=== PATIENT | male | born 1950 | race African-American/Black ===

== ENCOUNTER 2017-03-19 15:05 | Inpatient (IN) | payer BC, OTHER ==
[~2017-03-19] VITALS: Ht 177.8 cm; Wt 108.9 kg
--- NOTE | ~2017-03-19 | S ---
[facility] [place] [address] SURGICAL PATH RPT PROCEDURE Name: LINDSEY GOFF Room #: 217-P ADM IN M.R.#: [id number] Admission: 03/19/17 Date of : 54 Discharge: Report #: [id number] Path Case #: [id number] PATHOLOGY REPORT COLLECTION DATE: 03/21/2017 RECEIVED DATE: 03/21/2017 SUBMITTING PHYS: Dr. Mirza Dickey OTHER PHYS: Dr. Raj Warren SPECIMEN(S) RECEIVED: A.Right foot necrotic tissue * * * * * * * * * * * * FINAL DIAGNOSIS: Right foot necrotic tissue, debridement: - Marked acute inflammation, ulceration as well as gangrenous necrosis, consistent with debridement tissue. (IUV:sade; 03/23/2017) PATHOLOGIST: Natalia Guadarrama M.D. REPORT ELECTRONICALLY SIGNED BY: Natalia Guadarrama M.D. DATE/TIME: 03/23/2017 15:11 * * * * * * * * * * * * GROSS PATHOLOGY: The specimen is received in formalin, labeled "Lindsey Goff, right foot necrotic tissue" and consists of an ovoid, desiccated, necrotic portion of skin and soft tissue with associated blood clot measuring 12.6 x 7.5 x 2.5 cm. No one is identified A small rim of thickened, desquamated skin is noted along the edge measuring up to 0.2 cm in thickness. The cut surface has a dusky, purple-red, and thickened to softened appearance. Focal necrotic areas are also identified. No additional abnormalities are noted. Respiratory Therapy Manager sections are submitted in cassette A1. (JWP; 03/22/2017) CLINICAL HISTORY: Right foot osteomyelitis INITIAL CPT CODE(S): A; 54709 Professional services performed by [facility] at [facility] [address], [place] [address] Technical services performed by [facility] at [address] [place] [id number] SURGICAL PATH RPT PROCEDURE Name: LINDSEY GOFF [place] Room #: 217-P ADM IN .R.#: [id number] Admission: 03/19/17 Date of : 54 Discharge: Report #: [id number] Path Case #: [id number] [place] [address]. [facility] [address] [place] [address] PHONE: [phone] DIRECTOR: Froilan Domingo M.D. * * * END OF REPORT * * *
--- NOTE | ~2017-03-19 | O ---
[facility] [place] [address] OPERATIVE REPORT Name: LINDSEY WILLSON Room #: 217-P ADM IN M.R.#: [id number] Admission: 03/19/17 Attend Phys: Raj Warren DO Discharge: Date of : 54 Report #: [id number] THIS REPORT FOR: //name// CC: FAM unknown Raj Warren PREOPERATIVE DIAGNOSIS: Right foot gangrene with acute infection, heel and plantar foot. POSTOPERATIVE DIAGNOSIS: Right foot gangrene with acute infection, heel and plantar foot. PROCEDURE: Right foot extensive debridement and irrigation. SURGEON: Mirza Dickey M.D. ANESTHESIA: General. INDICATIONS: The patient is a 66-year-old gentleman who is in very poor general health, who has a chronic right foot ulcer. He apparently was evaluated at [facility] and had a vascular procedure to increase the inflow to his foot and was scheduled to have a debridement of his foot. He presented, however, acutely ill to [facility] and was admitted and we have been consulted regarding his foot wound. My PA and I evaluated his foot and his overall situation and I spent at least 30 minutes discussing at length with the patient the dire nature of his foot infection. I recommended a below-knee amputation for him as I think this would give him the best chance at healing, potentially ambulating and clearing the infection. He, unfortunately, has adamantly opposed to having a foot and below-knee amputation. For this region, I recommended that at least we do a debridement involving the devitalized and infected tissue to at least diminish his infection more to hopefully help his overall health. He consented to this procedure. DESCRIPTION OF PROCEDURE: After adequate general anesthesia had been obtained, the patient's right lower extremity was prepped and draped. He had a very large eschar on the plantar aspect of his foot, which was sharply resected. All devitalized tissue was removed sharply and with a rongeur. He did have an exposed os calcis and the unhealthy portion of the os calcis, i.e., the soft infected-appearing bone was also removed with rongeur. I then irrigated the foot with 3 liters of pulse lavage irrigation followed by a liter of antibiotic irrigation. No tourniquet was utilized. He did have bleeding in the subcutaneous tissues, which was the only positivity to come out on this surgery. [address] [address] OPERATIVE REPORT Name: LINDSEY WILLSON [place] Room #: 217-P [facility] IN M.R.#: [id number] Admission: 03/19/17 Attend Phys: Raj Warren DO Discharge: Date of : 54 Report #: [id number] We then placed a dilute Betadine-soaked Kerlix packing over the wound and then wrapped it sterilely with a compressive wrap. <ELECTRONICALLY SIGNED> By: Mirza Dickey MD 03/22/17 2149 1205 1359 Mirza Dickey MD /onelia
--- NOTE | ~2017-03-19 | HC ---
[facility] [place] [address] CONSULTATION Name: LINDSEY WILLSON Room #: 217-P [facility] IN M.R.#: [id number] Admission: 03/19/17 Attend Phys: Raj Warren DO Discharge: Date of : 54 Report #: [id number] THIS REPORT FOR: //name// CC: FAM unknown Raj Warren DATE OF SERVICE: 03/19/2017 INDICATION: Chest pain. HISTORY OF PRESENT ILLNESS: This is a 66-year-old gentleman who presents with complaints of chest pains, diarrhea and weakness. The patient is a poor historian. The details are obtained from his medical records. He does report having pain across the chest area, not related to exertion. It seems to come and go, partially reproducible with palpation over the chest area. The patient has a prior history of CABG, followed at [facility] with Dr. Castellon. Recently, he has been having issues with osteomyelitis of his right foot and has been attending wound clinic on a weekly basis. He has chronic renal disease, but not on dialysis. ALLERGIES: ASPIRIN, NIACIN, PIPERACILLIN and SULFA. MEDICAL HISTORY: 1. CABG times 5 in 2010. 2. History of mild cardiomyopathy with EF of 40% in 04/2016. Nuclear stress test from 04/2016 at [facility] revealed a large inferior wall infarct. 3. History of peripheral vascular disease with a left BKA. History of hypertension and chronic kidney disease. Also, with a history of noncompliance. Prior history of osteomyelitis. 4. History of diabetes mellitus. MEDICATIONS: Include torsemide 20 mg 3 times a day, insulin, Lipitor 40 mg daily, Imdur 30 mg, Zestril, and Coreg. SOCIAL HISTORY: Negative for tobacco use. FAMILY HISTORY: Negative for premature CAD. REVIEW OF SYSTEMS: A full 10-point review of systems performed. Only the pertinent positives and negatives are described in the HPI. PHYSICAL EXAMINATION: VITAL SIGNS: Blood pressure is 110/60, heart rate is 110 beats per minute. GENERAL APPEARANCE: An overweight male in no acute respiratory distress. HEAD AND EYES: Normocephalic. Sclerae are anicteric. [facility] [address] [place] [address] CONSULTATION Name: LINDSEY WILLSON [place] Room #: 217-P [facility] IN .R.#: [id number] Admission: 03/19/17 Attend Phys: Raj Warren DO Discharge: Date of : 54 Report #: [id number] ENT: Oral mucosa moist. NECK: Supple. LUNGS: Diminished breath sounds at the bases. CARDIAC: Distant heart sounds, S1, S2 positive. ABDOMEN: Soft, nontender. EXTREMITIES: Left BKA. Right lower extremity positive edema and erythema. Negative for cyanosis. ECG reveals probable sinus tachycardia with frequent APCs, right bundle branch block, PVCs, nonspecific ST segment abnormalities. LABORATORY VALUES: White count is 22.2, hemoglobin is 8.9. Sodium is 134, creatinine 6.1. Troponin is 0.21. X-ray of the right foot is suggestive for osteomyelitis. ASSESSMENT AND PLAN: 1. Chest pain syndrome, by history, appears to be noncardiac. The troponin abnormality is in the indeterminate range. It may be a false positive elevation due to his underlying renal disease. The plan is to continue with medical therapy for now. Continue with long-acting nitrates, and resume of low dose of beta belle. He has allergy to ASPIRIN, but apparently was given Plavix in the ER. 2. Sepsis, rule out osteomyelitis, elevated white count. Mccormick-culture and start antibiotics. 3. Cardiomyopathy in the moderate range, stable at this time. 4. Chronic kidney disease, follow creatinine and await nephrology evaluation. 5. Hypertension. The blood pressure is stable at this time. 6. Diabetes mellitus, continue with insulin regimen and fingersticks. Thank you for allowing me to participate in the care of your patient. <ELECTRONICALLY SIGNED> By: Shoaib Perry MD 03/21/17 0821 27 0228 Shoaib Perry MD /nt
--- NOTE | ~2017-03-19 | HC ---
[facility] [place] [address] CONSULTATION Name: LINDSEY WILLSON [place] Room #: 217-P ADM IN M.R.#: [id number] Admission: 03/19/17 Attend Phys: Raj Warren DO Discharge: Date of : 54 Report #: [id number] THIS REPORT FOR: //name// CC: FAM unknown Raj Warren INFECTIOUS DISEASE CONSULTATION REASON FOR CONSULTATION: I was asked to evaluate concerning right lower extremity infection. HISTORY OF PRESENT ILLNESS: The patient is a 66-year-old with diabetes, hypertension, coronary artery disease, peripheral vascular disease, chronic renal failure. He has had a previous amputation of his left lower extremity several years ago. Now presents with increasing chest pain associated with generalized weakness, diarrhea and persistent wound to his right foot. He was diagnosed with osteomyelitis at [facility]. By his report, he was undergoing anesthesia for further debridement and he coded. Unclear if any debridement was performed. States he was dismissed and has been following in the outpatient wound care clinic. Today on presentation to the Emergency Room, he has been complaining of chest discomfort. He has just been evaluated by Cardiovascular Medicine. I did discuss the case with him. He has been undergoing hemodialysis as an outpatient. Details of this are not available. ALLERGIES: ASPIRIN, NIACIN, ZOSYN, SULFA, WATERMELON. MEDICATIONS: As noted on his MAR. He was given vancomycin and ceftriaxone in the Emergency Room. PAST MEDICAL AND SURGICAL HISTORY: Coronary artery bypass grafting, congestive heart failure, hypertension, diabetes, end-stage renal disease, left BKA, peripheral vascular disease, peripheral neuropathy, bilateral carpal tunnel syndrome, knee surgery, left rotator cuff surgery, left lower extremity vascular stents, elbow repair. FAMILY HISTORY: Coronary artery disease, diabetes, renal disease. SOCIAL HISTORY: He is a nonsmoker, no significant alcohol intake. REVIEW OF SYSTEMS: Complaining of shortness of breath, chest discomfort. Has had difficulty urinating, has had loose stools, no vomiting, no abdominal pain. PHYSICAL EXAMINATION: VITAL SIGNS: His last dialysis was approximately 2 weeks ago and he was taken off dialysis. He has been on and off for the last several years. Creatinine today was 6. GENERAL: Afebrile and hemodynamically stable. He was short of breath, moving [facility] [address] [place] [address] CONSULTATION Name: LINDSEY WILLSON [place] Room #: 217-P [facility] IN M.R.#: [id number] Admission: 03/19/17 Attend Phys: Raj Warren DO Discharge: Date of : 54 Report #: [id number] in bed. HEENT: Unremarkable. LUNGS: Clear. HEART: Regular, without murmur. ABDOMEN: Soft, nontender, no hepatosplenomegaly or mass appreciated. GENITOURINARY: External genitalia unremarkable. EXTREMITIES: Left BKA had a small wound to the distal aspect. The right lower extremity had 2+ edema throughout, decreased pulses in the groin +2, cannot palpate any pulses in his foot. He had diffuse erythema in the lower leg below the knee, had eschar from the hind foot to the mid foot region. This was more consistent with dry gangrene. Minimal surrounding erythema. Decreased sensation. LABORATORY STUDIES: BNP 38,794. Hemoglobin 8.9; platelet count 292,000; white count 22,000 with 2% bands; 88% neutrophils. CRP was 289, lactate 2.2. X-ray of the foot, soft tissue ____ with subcutaneous gas, bony destruction and cortical destruction of the calcaneus consistent with osteomyelitis. Sodium 134, potassium 3.7, bicarb of 18, creatinine 6.1. Electrocardiogram, PVCs, right bundle-branch block. IMPRESSION: A 66-year-old diabetic with peripheral vascular disease with osteomyelitis of his right lower extremity involving the calcaneus. He has coronary disease, peripheral vascular disease and peripheral neuropathy. I suspect now end-stage renal disease. I would recommend Vascular Surgery evaluation. We performed arterial studies prior to what I suspect will be the need for below-knee amputation. I have discussed with Cardiovascular Medicine. Right now, unclear of the workup. Cardiovascular Medicine was feeling this is most likely noncardiogenic chest pain. We will also need Nephrology assistance. It appears at this time the patient will require hemodialysis, but will need their input. <ELECTRONICALLY SIGNED> By: Ron Ochoa MD 03/24/17 1528 [id number] Ron Ochoa MD /nt
--- NOTE | ~2017-03-19 | HC ---
[facility] [place] [address] CONSULTATION Name: LINDSEY WILLSON Room #: 217-P [facility] IN M.R.#: [id number] Admission: 03/19/17 Attend Phys: Raj Warren DO Discharge: Date of : 54 Report #: [id number] THIS REPORT FOR: //name// CC: FAM unknown Raj Warren DATE OF SERVICE: 03/20/2017 REASON FOR PRESENTATION: Chest pain and diarrhea. REASON FOR CONSULTATION: Advanced chronic kidney disease. HISTORY OF PRESENT ILLNESS: This is a 66-year-old with extensive past medical history including diabetes mellitus, hypertension, ongoing issues with peripheral vascular disease, status post left BKA, cellulitis and possible osteomyelitis of the right foot for which he received some medical care at [facility]. He is also known to have advanced chronic kidney disease. He had been seen on numerous occasions in 2016 by my partners, Dr. Franco and Dr. Nassar. He was deemed to be end-stage renal disease due to hypertension. He used to see a computer analyst at [facility]. He was supposed to see Dr. Franco in the clinic; however, due to his snf, he is supposed to see his nurse practitioner. He told me that he in the past required some dialysis, but the history is not really clear about that. When he presented yesterday, he was found to have an elevated creatinine and I was asked to manage his chronic kidney disease. PAST MEDICAL HISTORY: 1. Hypertension. 2. Diabetes mellitus. 3. Peripheral vascular disease, status post left BKA. 4. Cellulitis and osteo of the right side per him. 5. Cardiomyopathy with an ejection fraction of 40%. 6. Advanced chronic kidney disease, stage 5 due to diabetes mellitus. 7. Nephrotic-range proteinuria. 8. Status post left BKA. 9. Hyperlipidemia. PAST SURGICAL HISTORY: 1. CABG. 2. Left BKA. 3. Left rotator cuff. ALLERGIES: ASPIRIN, NIACIN, ZOSYN. FAMILY HISTORY: Significantly strong family history of diabetes mellitus. [facility] [address] [place] [address] CONSULTATION Name: WILLSONLINDSEY [place] Room #: [address] [place] [address] IN M.R.#: [id number] Admission: 03/19/17 Attend Phys: Raj Warren DO Discharge: Date of : 54 Report #: [id number] REVIEW OF SYSTEMS: GENERAL: No fever or chills. CARDIOVASCULAR: Significant for chest pain. PULMONARY: Significant for shortness of breath. GASTROINTESTINAL: No nausea or vomiting. GENITOURINARY: No frequency, no urgency. MUSCULOSKELETAL: As per the history of present illness. PATIENT MEDICATIONS: 1. Gabapentin. 2. Torsemide. 3. Insulin. PHYSICAL EXAMINATION: GENERAL: He is alert, oriented. VITAL SIGNS: Blood pressure is 95/56. HEAD AND NECK: No jugular venous distention. CHEST: No crackles. CARDIOVASCULAR: No rub. ABDOMEN: Soft, nontender. LOWER EXTREMITIES: Status post left BKA with extensive edema on the right side. There is an erythema of the right leg below the knee. There is also eschar on the hindfoot, this seems to be old dry gangrene. LABORATORY VALUES: White blood cell count is elevated at 21. Chemistry from today revealed a sodium of 134, BUN of 67 and a creatinine of 5.9. ASSESSMENT, IMPRESSION AND PLAN: 1. End-stage renal disease. 2. Noncompliance. 3. Leukocytosis. 4. Possible osteomyelitis of the right foot. 5. Diabetes mellitus, uncontrolled. 6. The patient is really not clear about any of his medical issues. He really lacks insight of his medical care. He is not aware of his medications. I will review his clinic records. From the renal perspective, he seems to be approaching dialysis. He will need to be prepared for that. At this point, we will try to optimize his blood pressure, his blood sugar. He needs his cellulitis to be treated. 7. I will resume his outpatient clinic medications. 8. Based on his progress over the next few days, I will decide about initiating dialysis in him or not. <ELECTRONICALLY SIGNED> By: Libby Martinez MD 03/21/17 2146 0754 00 Libby Martinez MD /nt
--- NOTE | ~2017-03-19 | EKG ---
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
--- NOTE | ~2017-03-19 | EKG ---
[address] [place] [address] ELECTROCARDIOGRAM REPORT Name: WILLSONLEXII [place] Room #: 217-P ADM IN M.R.#: [id number] Admission: 03/19/17 Attend Phys: Raj Warren DO Discharge: Date of : 54 Report #: [id number] THIS REPORT FOR: //name// 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 : 1950 Requested By: Syed Tyler Order Number: [id number] MD: Flaco Owen Measurements Intervals [place] Rate: 111 P: -48 KS: 154 QRS: -156 QRSD: 161 T: 51 QT: 387 QTc: 526 Interpretive Statements Sinus tachycardia Ventricular premature complex RBBB and LPFB Compared to ECG 05/03/2016 13:23:31 Ventricular premature complex(es) now present Electronically Signed On 03-21-2017 8:14:36 CDT by Flaco Owen [email or web address] <ELECTRONICALLY SIGNED> By: Flaco Owen MD, [facility] 03/21/17 0814 1523 1523 Flaco Owen MD, [facility] /EPI
--- NOTE | ~2017-03-19 | HC ---
[facility] [place] [address] CONSULTATION Name: LINDSEY WILLSON [place] Room #: 217-P [facility] IN M.R.#: [id number] Admission: 03/19/17 Attend Phys: Raj Warren DO Discharge: Date of : 54 Report #: [id number] THIS REPORT FOR: //name// CC: FAM unknown Raj Warren DATE OF SERVICE: 03/22/2017 CHIEF COMPLAINT: Surgical wound following debridement of the right heel region. HISTORY OF PRESENT ILLNESS: This is a 66-year-old male patient, admitted earlier. He has a previous left BKA and had come to the Emergency Department with complains of chest pain and diarrhea, was noted to have necrosis and drainage from the plantar aspect of the right foot. He underwent aggressive surgical debridement of the plantar aspect of the right foot and I was asked to see him with regard to ongoing wound care. He denies significant pain at this time. PAST MEDICAL HISTORY: Positive for previous left below knee amputation, history of diabetes mellitus with peripheral neuropathy, coronary artery disease, and peripheral vascular disease. He has been followed by Dr. Nicolas, vascular surgeon previously. FAMILY HISTORY: Noncontributory. REVIEW OF SYSTEMS: CONSTITUTIONAL: Denies fever, chills, or weight loss. NEUROLOGICAL: The patient denies focal weakness. Does complain of neuropathy to both lower extremities. ENT: The patient denies earache, nasal drainage, or sore throat. CARDIOVASCULAR: The patient denies chest pain, palpitations, or diaphoresis. PULMONARY: The patient denies cough or shortness of breath. GASTROINTESTINAL: The patient denies nausea or abdominal pain. ORTHOPEDIC: The patient is aware of the ulceration and they surgically debrided the area of his right foot. He is concerned that he preserved the presence of his right leg and has declined previous below knee amputation recommendations. Other systems are negative. PHYSICAL EXAMINATION: VITAL SIGNS: At this time, temperature 97.6, pulse 85, respiration of 20, and blood pressure 132/59. GENERAL: This is a chronically ill-appearing male patient, who appears to be in no distress. HEENT: Normocephalic. Nose and throat clear. NECK: Supple. LUNGS: Clear. [facility] [address] [place] [address] CONSULTATION Name: LINDSEY WILLSON [place] Room #: 217-P ADM IN M.R.#: [id number] Admission: 03/19/17 Attend Phys: Raj Warren DO Discharge: Date of : 54 Report #: [id number] ABDOMEN: Soft. Bowel sounds present. EXTREMITIES: Distal lower extremities demonstrate diminished palpable distal pulse on the right foot. He has previously well-healed left below knee amputation. He has a large defect on the plantar aspect of the right foot involving the posterior half of the foot. There is exposed calcaneus and plantar fascia. There is a small ring of granulation tissue, most of the yellow tissue exposed as fibrous. It is not overtly infected. CLINICAL IMPRESSION: 1. Diabetic foot ulceration to the right foot, now status post surgical debridement of necrotic and infected tissue. 2. Peripheral vascular disease. 3. Diabetes mellitus with peripheral neuropathy. RECOMMENDATIONS: At this point in time, we will recommend topical antibiotic ointment, Xeroform gauze in order to prevent desiccation of the bone and other tissue. I am reluctant to believe that this area is going to fill in or heal well and he would likely be most benefited with below knee amputation, which he is not willing to consider at this point in time. I appreciate being asked to see him in consultation. <ELECTRONICALLY SIGNED> By: Osmin Rodrigues MD 03/24/17 1002 [id number] 2318 Osmin Rodrigues MD /nt
--- NOTE | ~2017-03-19 | 2DMMODE ---
[facility] [address] [place] [address] 2 D/M-MODE ECHOCARDIOGRAM Name: DEMETRISLINDSEY BRIDPORT Room #: 217-P ADM IN .R.#: [id number] Admission: 03/19/17 Attend Phys: Raj Warren, Discharge: Date of : 54 Date of Service: 03/20/17 1154 Report #: [id number] THIS REPORT FOR: //name// APPROVED REPORT Study performed: 03/20/2017 09:42:13 EXAM: Comprehensive 2D, Doppler, and color-flow Echocardiogram Patient Location: Bedside Room #: 217 Status: routine BSA: 2.28 HR: 98 bpm BP: 95/56 mmHg Other Information Study Quality: Adequate, Technically Difficult Indications Congestive Heart Failure Diabetes CAD Elevated Troponin Chest Pain 2D Dimensions RVDd: 48.97 mm LVEF(%): 44.51 (>50%) IVSd: 14.63 (7-11mm) LVOT Diam: 19.03 (18-24mm) LVDd: 50.68 mm PWd: 15.20 (7-11mm) Ascending Ao: 36.96 (22-36mm) LVDs: 39.45 (25-40mm) Aortic Root: 32.56 mm IVC: 26.00 mm Joel's LVEF: 44.51 % Volumes Left Atrial Volume (Systole) Single Plane 4CH: 90.94 mL Single Plane 2CH: 53.61 mL LA ESV Index: 35.00 mL/m2 Aortic Valve AoV Peak Reilly.: 2.00 m/s AO Peak Gr.: 15.99 mmHg LVOT Max P.40 mmHg LVOT Max V: 0.78 m/s TRIP Vmax: 1.10 cm2 [facility] [address] [place] [address] 2 D/M-MODE ECHOCARDIOGRAM Name: LINDSEY WILLSON BRIDPORT Room #: 217-[facility] IN .R.#: [id number] Admission: 03/19/17 Attend Phys: Raj Warren, Discharge: Date of : 54 Date of Service: 03/20/17 1154 Report #: [id number] Mitral Valve MV Decel. Time: 132.93 ms MV E Max Reilly.: 1.18 m/s Pulmonary Valve PV Peak Reilly.: 0.97 m/s PV Peak Gr.: 3.79 mmHg Tricuspid Valve TR Peak Rielly.: 3.28 m/s RAP Estimate: 15.00 mmHg TR Peak Gr.: 43.16 mmHg Left Ventricle The left ventricle is normal size. Moderate concentric left ventricular hypertrophy. Left ventricular systolic function is moderately decreased. LVEF is 35%. This study is not technically sufficient to allow evaluation of the LV diastolic function. Right Ventricle Right ventricle is dilated. Right ventricle is hypokinetic. Atria Left atrium is dilated. Right atrium is dilated. Aortic Valve The Aortic valve is sclerotic cannot exclude bicuspid structure Trace to mild aortic regurgitation. There is no aortic valvular stenosis. Mitral Valve The mitral valve is normal in structure. Mild to moderate mitral regurgitation. No evidence of mitral valve stenosis. There is normal mitral valve excursion. Mild mitral stenosis. Mild to moderate mitral stenosis. Moderate mitral stenosis. Moderate to severe mitral stenosis. Severe mitral stenosis. Borderline mitral stenosis. Tricuspid Valve The tricuspid valve is normal in structure. There is moderate tricuspid regurgitation. The right atrial pressure is estimated at 15 mmHg. PAP is estimated at 58 mmHg. Pulmonic Valve The pulmonary valve is normal in structure. Moderate pulmonic regurgitation. [facility] [address] [place] [address] 2 D/M-MODE ECHOCARDIOGRAM Name: LINDSEY WILLSON BRIDPORT Room #: 217-P [facility] IN ..#: [id number] Admission: 03/19/17 Attend Phys: Raj Warren, Discharge: Date of : 54 Date of Service: 03/20/17 1154 Report #: [id number] Great Vessels The aortic root is normal in size. IVC is dilated and collapses <50% with inspiration. <Conclusion> The left ventricle is normal size. LVEF is 35%. Right ventricle is dilated. Right ventricle is hypokinetic. Left atrium is dilated. Right atrium is dilated. The Aortic valve is sclerotic cannot exclude bicuspid structure Trace to mild aortic regurgitation. The mitral valve is normal in structure. Mild to moderate mitral regurgitation. The tricuspid valve is normal in structure. There is moderate tricuspid regurgitation. The right atrial pressure is estimated at 15 mmHg. PAP is estimated at 58 mmHg. The pulmonary valve is normal in structure. Moderate pulmonic regurgitation. <ELECTRONICALLY SIGNED> By: Irvin Stanley MD 03/20/17 1154 1154 1154 Irvin Stanley MD /INF
[~2017-03-19 15:05] MED LIST: ATORVASTATIN CA40 MG PO; CALCIUM ACETAT667 MG PO; COREG25 MG PO; HUMALOG100 UNIT/1 SUBQ; HYDRALAZINE 2525 MG PO; IMDUR 30 MG TAB30 M1 PO; LANTUS SUBQ; LANTUS100 UNIT/M SUBQ; LASIX 80 MG TAB80 MG PO; LISINOPRIL10 MG PO; METOLAZONE 5 MG5 MG PO; NEURONTIN 300300 M1 PO; NORCO 10-325 T1 EACH PO; TORSEMIDE20 MG PO; XANAX1 MG PO
[2017-03-19 15:06] VITALS: BP 119/66
[2017-03-19 17:04] LABS: HEMATOCRIT 27.8 % (42.0-52.0); HEMOGLOBIN 8.9 gm/dL (14.0-18.0); MCH 26.3 pg (26.0-34.0); MCV 82.3 fL (80.0-100.0); PLATELET COUNT 292 thou/uL (150-400); RBC 3.38 mil/uL (4.50-6.00); RDW 16.9 % (10.5-14.5); WBC 22.2 thou/uL (4.0-11.0)
[2017-03-19 17:09] LABS: CALCIUM 8.2 mg/dL (8.5-10.1); CREATININE 6.1 mg/dL (0.7-1.3); POTASSIUM 3.7 mmol/L (3.5-5.1)
[2017-03-19 17:17] LABS: MANUAL DIFF YES
[2017-03-19 17:19] LABS: TROPONIN-I 0.21 ng/mL (<0.04-0.07)
[2017-03-19 17:52] LABS: ANISOCYTOSIS 2+; HYPOCHROMASIA SLIGHT; POLYCHROMASIA SLIGHT; TOTAL CELL COUNT 100
[2017-03-19 19:40] VITALS: BP 100/56
[2017-03-19 21:35] VITALS: BP 104/51
[2017-03-19 21:37] VITALS: BP 104/51
[2017-03-19 21:47] LABS: CALCIUM 7.3 mg/dL (8.5-10.1); CREATININE 5.9 mg/dL (0.7-1.3); POTASSIUM 3.8 mmol/L (3.5-5.1)
[2017-03-19 23:20] VITALS: BP 106/63
[2017-03-20 04:03] LABS: HEMATOCRIT 22.7 % (42.0-52.0); HEMOGLOBIN 7.3 gm/dL (14.0-18.0); MCH 26.7 pg (26.0-34.0); MCHC 32.3 g/dL (28.0-37.0); MCV 82.8 fL (80.0-100.0); PLATELET COUNT 219 thou/uL (150-400); RBC 2.74 mil/uL (4.50-6.00); RDW 17.4 % (10.5-14.5)
[2017-03-20 04:04] LABS: MANUAL DIFF YES
[2017-03-20 04:07] LABS: CALCIUM 7.6 mg/dL (8.5-10.1); CREATININE 5.9 mg/dL (0.7-1.3); POTASSIUM 3.5 mmol/L (3.5-5.1)
[2017-03-20 04:18] VITALS: BP 95/56
[2017-03-20 06:03] LABS: ABSOLUTE NEUTROPHILS 18.9 thou/uL (1.4-8.2); TOTAL CELL COUNT 100
[2017-03-20 06:04] LABS: ANISOCYTOSIS 1+
[2017-03-20 07:45] VITALS: BP 132/84
[2017-03-20 12:00] VITALS: BP 109/63
[2017-03-20 12:03] LABS: INR 1.3; PROTIME 12.9 Seconds (9.3-11.4)
[2017-03-20 15:10] VITALS: BP 111/83
[2017-03-20 20:56] VITALS: BP 120/64
[2017-03-20 23:46] VITALS: BP 112/63
[2017-03-21 01:11] VITALS: BP 119/71; BP 131/84
[2017-03-21 04:17] VITALS: BP 126/76; BP 134/82; BP 139/73
[2017-03-21 04:30] VITALS: BP 134/82
[2017-03-21 07:19] VITALS: BP 139/73
[2017-03-21 07:59] LABS: HEMATOCRIT 25.2 % (42.0-52.0); HEMOGLOBIN 8.1 gm/dL (14.0-18.0)
[2017-03-21 08:12] LABS: ALBUMIN 1.4 g/dL (3.4-5.0); CALCIUM 8.2 mg/dL (8.5-10.1); PHOSPHORUS 5.6 mg/dL (2.5-4.9); POTASSIUM 3.7 mmol/L (3.5-5.1)
[2017-03-21 10:30] VITALS: BP 134/69
[2017-03-21 20:13] VITALS: BP 118/61
[2017-03-22] VITALS (7 sets, daily range): BP systolic 102–132; BP diastolic 59–72
[2017-03-22 03:37] LABS: HEMATOCRIT 24.6 % (42.0-52.0); HEMOGLOBIN 7.7 gm/dL (14.0-18.0)
[2017-03-22 03:48] LABS: ALBUMIN 1.3 g/dL (3.4-5.0); CREATININE 6.2 mg/dL (0.7-1.3); POTASSIUM 3.8 mmol/L (3.5-5.1)
[2017-03-23 04:35] VITALS: BP 134/74
[2017-03-23 05:01] LABS: ALBUMIN 1.3 g/dL (3.4-5.0); CALCIUM 7.8 mg/dL (8.5-10.1); CREATININE 6.3 mg/dL (0.7-1.3); PHOSPHORUS 6.1 mg/dL (2.5-4.9); POTASSIUM 4.1 mmol/L (3.5-5.1)
[2017-03-23 07:30] VITALS: BP 138/64
[2017-03-23] MEDS ORDERED: NORCO 10-325 T1 EACH PO (10:04)
[2017-03-23] MEDS ORDERED: MEROPENEM500 MG IV (10:04)
[2017-03-23] MEDS ORDERED: FENTANYL 0.50 MCG/ML IV PUSH (10:05)
[2017-03-23 11:35] VITALS: BP 133/73
[2017-03-23 15:15] VITALS: BP 99/61
[2017-03-23 15:50] VITALS: BP 142/74
[2017-03-23 19:37] VITALS: BP 143/72
[2017-03-23 23:11] LABS: HEP B SURFACE Ab(ANTI-HBS Non Reactive (())
[2017-03-24 03:54] VITALS: BP 131/60
[2017-03-24 07:35] VITALS: BP 138/59
[2017-03-24 11:30] VITALS: BP 122/80
[2017-03-24 15:40] VITALS: BP 140/84
[2017-03-24 19:38] VITALS: BP 150/81
[2017-03-25 05:24] VITALS: BP 121/79
[2017-03-25 07:35] VITALS: BP 135/79
[2017-03-25 11:40] VITALS: BP 148/87
[2017-03-25 15:45] VITALS: BP 189/75
[2017-03-25 19:39] VITALS: BP 141/80
[2017-03-26 03:01] LABS: HEMOGLOBIN 8.2 gm/dL (14.0-18.0); MCH 26.3 pg (26.0-34.0); MCHC 31.5 g/dL (28.0-37.0); MCV 83.5 fL (80.0-100.0); RBC 3.12 mil/uL (4.50-6.00); RDW 17.8 % (10.5-14.5); WBC 12.7 thou/uL (4.0-11.0)
[2017-03-26 03:10] LABS: ALBUMIN 1.3 g/dL (3.4-5.0); CALCIUM 8.1 mg/dL (8.5-10.1); PHOSPHORUS 3.8 mg/dL (2.5-4.9); POTASSIUM 3.8 mmol/L (3.5-5.1)
[2017-03-26 03:11] LABS: CREATININE 3.3 mg/dL (0.7-1.3)
[2017-03-26 04:39] VITALS: BP 145/80
[2017-03-26 07:30] VITALS: BP 151/79
[2017-03-26 11:35] VITALS: BP 146/92
[2017-03-26 15:25] VITALS: BP 144/93
[2017-03-26 19:34] VITALS: BP 135/74
[2017-03-27 03:22] LABS: HEMATOCRIT 25.4 % (42.0-52.0); HEMOGLOBIN 8.2 gm/dL (14.0-18.0); MCH 26.8 pg (26.0-34.0); MCHC 32.2 g/dL (28.0-37.0); MCV 83.2 fL (80.0-100.0); PLATELET COUNT 384 thou/uL (150-400); RBC 3.05 mil/uL (4.50-6.00); RDW 17.2 % (10.5-14.5)
[2017-03-27 03:23] LABS: MANUAL DIFF YES
[2017-03-27 03:27] LABS: CALCIUM 8.5 mg/dL (8.5-10.1); CREATININE 3.4 mg/dL (0.7-1.3); POTASSIUM 3.8 mmol/L (3.5-5.1)
[2017-03-27 04:30] LABS: ABSOLUTE NEUTROPHILS 9.9 thou/uL (1.4-8.2); ANISOCYTOSIS 1+; METAMYELOCYTES 1 %; MYELOCYTES 1 %; TOTAL CELL COUNT 100
[2017-03-27 04:32] VITALS: BP 130/73
[2017-03-27 12:18] VITALS: BP 147/82
[2017-03-27 15:20] VITALS: BP 138/80
[2017-03-27 20:49] VITALS: BP 143/75
[2017-03-28 04:00] VITALS: BP 131/80
[2017-03-28 07:10] VITALS: BP 116/70
[2017-03-28 08:31] VITALS: BP 131/80
[2017-03-28 11:50] VITALS: BP 125/80
[2017-03-28 16:30] VITALS: BP 143/91
[2017-03-28 20:30] VITALS: BP 128/84; BP 146/78
[2017-03-29] VITALS (7 sets, daily range): BP systolic 126–188; BP diastolic 71–92
[2017-03-29 06:01] LABS: ABSOLUTE NEUTROPHILS 8.3 thou/uL (1.4-8.2); EOSINOPHILS 0.3 % (0.0-3.0); HEMATOCRIT 23.6 % (42.0-52.0); HEMOGLOBIN 7.5 gm/dL (14.0-18.0); LYMPHOCYTES 11.8 % (24.0-44.0); MCH 26.4 pg (26.0-34.0); MCHC 31.7 g/dL (28.0-37.0); MCV 83.2 fL (80.0-100.0); MONOCYTES 7.9 % (1.0-8.0); RBC 2.84 mil/uL (4.50-6.00); RDW 17.1 % (10.5-14.5); WBC 10.5 thou/uL (4.0-11.0)
[2017-03-29 06:09] LABS: PLATELET COUNT 299 thou/uL (150-400)
[2017-03-29 06:10] LABS: MANUAL DIFF NO
[2017-03-29 06:27] LABS: ALBUMIN 1.3 g/dL (3.4-5.0); CALCIUM 8.4 mg/dL (8.5-10.1); CREATININE 3.2 mg/dL (0.7-1.3); POTASSIUM 4.2 mmol/L (3.5-5.1); TOTAL BILIRUBIN 0.8 mg/dL (<0.1-1.0); TOTAL PROTEIN 6.4 g/dL (6.4-8.2)
[2017-03-29] MEDS ORDERED: POTASSIUM20 PO (12:07)
[2017-03-30 00:10] VITALS: BP 133/70
[2017-03-30 03:51] LABS: ABSOLUTE NEUTROPHILS 8.2 thou/uL (1.4-8.2); BASOPHILS 0.8 % (0.0-2.0); EOSINOPHILS 0.3 % (0.0-3.0); HEMATOCRIT 24.4 % (42.0-52.0); HEMOGLOBIN 7.8 gm/dL (14.0-18.0); LYMPHOCYTES 14.6 % (24.0-44.0); MCH 26.4 pg (26.0-34.0); MCHC 31.8 g/dL (28.0-37.0); MCV 82.9 fL (80.0-100.0); MONOCYTES 9.3 % (1.0-8.0); PLATELET COUNT 257 thou/uL (150-400); RBC 2.94 mil/uL (4.50-6.00); RDW 17.1 % (10.5-14.5)
[2017-03-30 04:09] LABS: ALBUMIN 1.4 g/dL (3.4-5.0); CALCIUM 8.2 mg/dL (8.5-10.1); CREATININE 2.7 mg/dL (0.7-1.3); POTASSIUM 4.2 mmol/L (3.5-5.1); TOTAL BILIRUBIN 0.7 mg/dL (<0.1-1.0); TOTAL PROTEIN 6.5 g/dL (6.4-8.2)
[2017-03-30 04:18] LABS: MANUAL DIFF NO
[2017-03-30 04:30] VITALS: BP 97/70
[2017-03-30 07:14] VITALS: BP 97/70
[2017-03-30 08:00] VITALS: BP 128/80
[2017-03-30 12:00] VITALS: BP 134/80
[2017-03-30 14:06] VITALS: BP 153/88
== END 2017-03-30 17:45 | DRG 853 ==
LOC: ER 15:05 → 2N 18:06 → EROBS 18:06 → 2N 19:38
PROVIDERS: Emergency Medicine; Family Medicine; Hospitalist; Internal Medicine Nephrology; Nurse Practitioner Acute Care; Nurse Practitioner Family; Orthopaedic Surgery; Physician Assistant
PROC: 0JBQ0ZZ Excision of Right Foot Subcutaneous Tissue and Fascia, Open Approach (ICD-10-PCS; principal; 2017-03-21)
PROC: 30233N1 Transfusion of Nonautologous Red Blood Cells into Peripheral Vein, Percutaneous Approach (ICD-10-PCS; 2017-03-21)
PROC: 30233K1 Transfusion of Nonautologous Frozen Plasma into Peripheral Vein, Percutaneous Approach (ICD-10-PCS; 2017-03-21)
PROC: B548ZZA Ultrasonography of Superior Vena Cava, Guidance (ICD-10-PCS; 2017-03-23)
PROC: 5A1D60Z (ICD-10-PCS; 2017-03-23)
PROC: B5181ZA Fluoroscopy of Superior Vena Cava using Low Osmolar Contrast, Guidance (ICD-10-PCS; 2017-03-23)
PROC: 02HV33Z Insertion of Infusion Device into Superior Vena Cava, Percutaneous Approach (ICD-10-PCS; 2017-03-23)
DX: A41.9 Sepsis, unspecified organism (principal); N18.6 End stage renal disease; E43 Unspecified severe protein-calorie malnutrition; E11.52 Type 2 diabetes mellitus with diabetic peripheral angiopathy with gangrene; M86.9 Osteomyelitis, unspecified; I42.9 Cardiomyopathy, unspecified; I13.2 Hypertensive heart and chronic kidney disease with heart failure and with stage 5 chronic kidney disease, or end stage renal disease; E11.69 Type 2 diabetes mellitus with other specified complication; I50.9 Heart failure, unspecified; I25.10 Atherosclerotic heart disease of native coronary artery without angina pectoris; E11.51 Type 2 diabetes mellitus with diabetic peripheral angiopathy without gangrene; E78.5 Hyperlipidemia, unspecified; F41.9 Anxiety disorder, unspecified; E11.42 Type 2 diabetes mellitus with diabetic polyneuropathy; R65.20 Severe sepsis without septic shock; E11.621 Type 2 diabetes mellitus with foot ulcer; E11.65 Type 2 diabetes mellitus with hyperglycemia; E11.22 Type 2 diabetes mellitus with diabetic chronic kidney disease; E78.00 Pure hypercholesterolemia, unspecified; D63.8 Anemia in other chronic diseases classified elsewhere; Z95.1 Presence of aortocoronary bypass graft; Z89.512 Acquired absence of left leg below knee; Z79.899 Other long term (current) drug therapy; Z88.6 Allergy status to analgesic agent; Z88.0 Allergy status to penicillin; Z88.1 Allergy status to other antibiotic agents; Z88.8 Allergy status to other drugs, medicaments and biological substances; Z82.49 Family history of ischemic heart disease and other diseases of the circulatory system; Z83.3 Family history of diabetes mellitus; Z91.19 Patient's noncompliance with other medical treatment and regimen; Z68.34 Body mass index [BMI] 34.0-34.9, adult; Z99.2 Dependence on renal dialysis
CPT/HCPCS: 10081; 32100; 50010; 50101; 50386; 53078; 57091; 62110; 62850; 70005

== ENCOUNTER 2017-04-14 15:48 | Emergency (ER) | payer BC, OTHER ==
[~2017-04-14] VITALS: Ht 177.8 cm; Wt 103.0 kg
[~2017-04-14 15:48] MED LIST changes: +FENTANYL 0.50 MCG/ML IV PUSH; +MEROPENEM500 MG IV; +POTASSIUM20 PO
[2017-04-14] MEDS ORDERED: DEMADEX20 MG PO (16:22)
[2017-04-14] MEDS ORDERED: PLAVIX 75 MG TA75 M1 PO (16:22)
[2017-04-14] MEDS ORDERED: VICODIN HP 10-1 EAC1 PO (16:24)
[2017-04-14 17:20] LABS: URINE BILIRUBIN NEGATIVE (Negative); URINE BLOOD 2+ (Negative); URINE COLOR YELLOW; URINE GLUCOSE-RANDOM* 3+ (Negative); URINE KETONES NEGATIVE (Negative); URINE NITRITE NEGATIVE (Negative); URINE PROTEIN (DIPSTICK) 2+ (Negative); URINE SPECIFIC GRAVITY 1.015 (1.003-1.035); URINE UROBILINOGEN 0.2 E.U./dl (0.2-1.0)
[2017-04-14 17:27] LABS: CASTS None Seen /LPF (None Seen); CRYSTALS None Seen /LPF (None Seen); SQUAMOUS None Seen /LPF (0-3); URINE WBC 6-15 Few /HPF (0-5); YEAST Present (None Seen)
[2017-04-14 17:28] LABS: BACTERIA 1-9 Few /HPF (None Seen); URINE RBC 0-2 Rare /HPF (0-2)
[2017-04-14 18:06] LABS: HEMATOCRIT 25.8 % (42.0-52.0); HEMOGLOBIN 7.9 gm/dL (14.0-18.0); MCHC 30.5 g/dL (28.0-37.0); MCV 82.2 fL (80.0-100.0); PLATELET COUNT 495 thou/uL (150-400); RBC 3.14 mil/uL (4.50-6.00); RDW 18.6 % (10.5-14.5); WBC 13.5 thou/uL (4.0-11.0)
[2017-04-14 18:15] LABS: MANUAL DIFF YES
[2017-04-14 18:20] LABS: CALCIUM 8.5 mg/dL (8.5-10.1); CREATININE 4.8 mg/dL (0.7-1.3); POTASSIUM 4.2 mmol/L (3.5-5.1)
[2017-04-14 18:26] LABS: ALBUMIN 1.6 g/dL (3.4-5.0); DIRECT BILIRUBIN 0.2 mg/dL (<0.1-0.3); TOTAL BILIRUBIN 0.9 mg/dL (<0.1-1.0); TOTAL PROTEIN 7.5 g/dL (6.4-8.2)
[2017-04-14 18:41] LABS: ABSOLUTE NEUTROPHILS 10.1 thou/uL (1.4-8.2); ANISOCYTOSIS 1+; METAMYELOCYTES 1 %; POLYCHROMASIA OCCASIONAL; TOTAL CELL COUNT 100
== END 2017-04-14 20:56 | disposition short-term general hospital (02) ==
LOC: ER 15:48
PROVIDERS: Emergency Medicine
DX: E11.621 Type 2 diabetes mellitus with foot ulcer (principal); E11.69 Type 2 diabetes mellitus with other specified complication; M86.9 Osteomyelitis, unspecified; I13.0 Hypertensive heart and chronic kidney disease with heart failure and stage 1 through stage 4 chronic kidney disease, or unspecified chronic kidney disease; E11.22 Type 2 diabetes mellitus with diabetic chronic kidney disease; N18.9 Chronic kidney disease, unspecified; E11.42 Type 2 diabetes mellitus with diabetic polyneuropathy; I25.10 Atherosclerotic heart disease of native coronary artery without angina pectoris; E78.00 Pure hypercholesterolemia, unspecified; Z98.890 Other specified postprocedural states; Z88.2 Allergy status to sulfonamides; Z88.1 Allergy status to other antibiotic agents; Z88.6 Allergy status to analgesic agent; Z91.018 Allergy to other foods; Z79.4 Long term (current) use of insulin; Z95.5 Presence of coronary angioplasty implant and graft

== ENCOUNTER 2017-05-24 14:34 | Emergency (ER) | payer BC, OTHER ==
[~2017-05-24] VITALS: Ht 177.8 cm; Wt 86.2 kg
[~2017-05-24 14:34] MED LIST changes: +DEMADEX20 MG PO; +PLAVIX 75 MG TA75 M1 PO; +VICODIN HP 10-1 EAC1 PO
[2017-05-24 15:33] LABS: ABSOLUTE NEUTROPHILS 5.2 thou/uL (1.4-8.2); BASOPHILS 1.2 % (0.0-2.0); EOSINOPHILS 2.5 % (0.0-3.0); HEMATOCRIT 34.1 % (42.0-52.0); HEMOGLOBIN 10.7 gm/dL (14.0-18.0); LYMPHOCYTES 20.2 % (24.0-44.0); MCH 26.4 pg (26.0-34.0); MCHC 31.3 g/dL (28.0-37.0); MCV 84.2 fL (80.0-100.0); MONOCYTES 9.7 % (1.0-8.0); PLATELET COUNT 267 thou/uL (150-400); POLYS 66.4 % (36.0-66.0); RBC 4.05 mil/uL (4.50-6.00); RDW 19.3 % (10.5-14.5); WBC 7.8 thou/uL (4.0-11.0)
[2017-05-24 15:41] LABS: CALCIUM 8.5 mg/dL (8.5-10.1); CREATININE 4.3 mg/dL (0.7-1.3); POTASSIUM 3.4 mmol/L (3.5-5.1)
[2017-05-24 15:42] LABS: MANUAL DIFF NO
[2017-05-24 15:46] LABS: MAGNESIUM 1.4 mg/dL (1.8-2.4)
[2017-05-24 17:40] LABS: URINE BILIRUBIN NEGATIVE (Negative); URINE BLOOD 3+ (Negative); URINE COLOR YELLOW; URINE GLUCOSE-RANDOM* 2+ (Negative); URINE KETONES NEGATIVE (Negative); URINE LEUKOCYTES-REFLEX 1+ (Negative); URINE PROTEIN (DIPSTICK) 3+ (Negative); URINE SPECIFIC GRAVITY 1.015 (1.003-1.035); URINE UROBILINOGEN 0.2 E.U./dl (0.2-1.0)
[2017-05-24 17:46] LABS: CASTS None Seen /LPF (None Seen); SQUAMOUS None Seen /LPF (0-3); URINE RBC >20 Many /HPF (0-2)
[2017-05-24 17:47] LABS: AMORPHOUS URATES Many /LPF (None Seen)
[2017-05-24] MEDS ORDERED: KEFLEX500 M1 PO (18:03)
[2017-05-24] MEDS ORDERED: XANAX1 MG PO (19:13)
== END 2017-05-24 20:03 | disposition home or self-care (01) ==
LOC: ER 14:34
PROVIDERS: Emergency Medicine
DX: N39.0 Urinary tract infection, site not specified (principal); E83.42 Hypomagnesemia; I13.0 Hypertensive heart and chronic kidney disease with heart failure and stage 1 through stage 4 chronic kidney disease, or unspecified chronic kidney disease; I50.9 Heart failure, unspecified; E11.9 Type 2 diabetes mellitus without complications; I25.10 Atherosclerotic heart disease of native coronary artery without angina pectoris; E78.5 Hyperlipidemia, unspecified; F41.9 Anxiety disorder, unspecified; N18.9 Chronic kidney disease, unspecified; E11.22 Type 2 diabetes mellitus with diabetic chronic kidney disease; E11.40 Type 2 diabetes mellitus with diabetic neuropathy, unspecified; Z86.14 Personal history of Methicillin resistant Staphylococcus aureus infection; Z79.4 Long term (current) use of insulin; Z88.6 Allergy status to analgesic agent; Z88.2 Allergy status to sulfonamides; Z88.8 Allergy status to other drugs, medicaments and biological substances